=== PATIENT | female | born 1950 | race American Indian/Alaskan Native ===

== ENCOUNTER 2020-05-11 19:56 | Inpatient (IN) | payer MEDICARE, OTHER, SELFPAY ==
[2020-05-11] VITALS (17 sets, daily range): BP systolic 149–167; BP diastolic 72–92; PULSE 84–97; RESP 16–48; O2SAT 92–98
--- NOTE | 2020-05-11 20:04 | DI.RAD.S_ITS ---
PROCEDURE: XR CHEST 1V INDICATIONS: flu-like symptoms TECHNIQUE: One view of the chest was acquired. COMPARISON: None. FINDINGS: Surgical changes and devices: None. Lungs and pleura: Extensive patchy airspace opacities bilaterally No pleural effusions or pneumothorax. Mediastinum: Mediastinal contours appear normal. Heart size is normal. Bones and chest wall: No suspicious bony lesions. Overlying soft tissues appear unremarkable. IMPRESSION: Extensive bilateral patchy airspace opacities would be consistent with multifocal pneumonia, either bacterial or viral. Dictated by: Cory Avalos M.D. on 05/11/2020 at 20:45 Approved by: Cory Avalos M.D. on 05/11/2020 at 20:46
--- NOTE | 2020-05-11 20:14 | ED.SOB ---
HPI - SOB/Dyspnea General Chief Complaint: Shortness of Breath/Dyspnea Stated Complaint: COVID +, SOB Time Seen by Provider: 05/11/20 19:58 Source: patient and EMS Mode of arrival: EMS Limitations: no limitations History of Present Illness HPI Narrative: 69-year-old female nonsmoker with known positive COVID swabbed presents with a chief complaint of increased difficulty breathing over the past few days. She has had a low-grade fever of just over 100. She has had a dry hacking cough. She denies any nausea, vomiting or diarrhea. She was tested about 1 week ago found to be positive for COVID-19. On arrival medics found her with significantly increased work of breathing and initial pulse ox in the low 60s. For transport she was placed on a non-rebreather at 15 L and is much more comfortable with a pulse ox in the mid 90s. MD Complaint: shortness of breath and cough Related Data Home Medications Medication Instructions Recorded Confirmed aspirin 81 mg PO DAILY 05/11/20 05/11/20 cholecalciferol (vitamin D3) 1,000 unit PO DAILY 05/11/20 05/11/20 hydrochlorothiazide 25 mg PO DAILY 05/11/20 05/11/20 lisinopril 40 mg PO DAILY 05/11/20 05/11/20 metformin 1,000 mg PO QAM 05/11/20 05/11/20 rosuvastatin 5 mg PO DAILY 05/11/20 05/11/20 Allergies Allergy/AdvReac Type Severity Reaction Status Date / Time No Known Drug Allergies Allergy Verified 05/11/20 20:34 Review of Systems Constitutional Constitutional: Reports chills, Denies fatigue, Reports fever(s), Denies frequent falls, Denies lethargy and Denies weakness Eyes Eyes: Denies change in vision, Denies eye discharge, Denies irritation and Denies loss of vision ENT Ears, Nose, Mouth, and Throat: Denies change in voice, Denies dizziness, Denies neck pain, Denies sore throat and Denies throat swelling Cardiovascular Cardiovascular: Denies chest pain, Denies irregular heart rhythm, Denies lightheadedness, Denies palpitations, Reports dyspnea, Reports dyspnea on exertion and Denies orthopnea Respiratory Respiratory: Reports cough, Reports dyspnea, Reports dyspnea on exertion and Denies wheezing Gastrointestinal Gastrointestinal: Denies abdominal pain, Denies change in bowel habits, Denies diarrhea, Denies nausea and Denies vomiting Musculoskeletal Musculoskeletal: Denies neck pain and Denies numbness Integumentary/Breasts Skin/Breast: Denies pruritus, Denies erythema, Denies rash and Denies wounds Neurologic Neurologic: Denies behavioral changes, Denies confusion, Denies dizziness, Denies frequent falls, Denies loss of vision, Denies numbness and Denies weakness Psychiatric Psychiatric: Denies anxiety, Denies behavioral changes, Denies confusion, Denies depression, Denies homicidal ideation and Denies suicidal ideation Endocrine Endocrine: Denies fatigue, Denies flushing and Denies palpitations Hematologic/Lymphatic Hematologic/Lymphatic: Denies easy bruising Allergic/Immunologic Allergic/Immunologic: Denies urticaria, Denies throat swelling and Denies wheezing Patient History Medical History Diabetes type 2, controlled (Acute) High cholesterol (Acute) Hypertension (Acute) Social History household members: family Smoking Status: Former smoker alcohol intake: never Exam Narrative Exam Narrative: GENERAL: [69] year old patient appears stated age. Well-nourished, well-developed patient, in obvious significant respiratory distress HEAD: Atraumatic. Normocephalic. EYES: Pupils equal round and reactive. Extraocular motions intact. No scleral icterus. No injection or drainage. ENT: Nose without bleeding, purulent drainage. Throat without erythema, tonsillar hypertrophy or exudate. Airway patent. NECK: Trachea midline. Non tender CARDIOVASCULAR: Regular rate and rhythm without murmurs, gallops, or rubs. RESPIRATORY: Tachypneic with faint crackles in bilateral bases GASTROINTESTINAL: Abdomen soft, non-tender, nondistended. EXTREMITIES: No edema or joint tenderness. BACK: Nontender without deformity or crepitance. No flank tenderness. NEURO: AOx3. SKIN: No rash or erythema of visible areas Initial Vital Signs Initial Vital Signs: Vital Signs Pulse Rate 97 H 05/11/20 20:11 Respiratory Rate 42 H 05/11/20 20:11 Pulse Oximetry 95 05/11/20 20:11 Course Orders Ordered: Acetaminophen (Tylenol) 650 mg PO Q6HR PRN PRN Reason: Fever/Mild Pain (1-3) Aspirin (Aspirin Chew) 81 mg PO DAILY [facility] Dexamethasone (Decadron) 6 mg PO DAILY [facility] Dextrose (D50w) 25 gm IV PRN PRN PRN Reason: Hypoglycemia Dextrose (D50w) 25 gm IV PRN PRN PRN Reason: Hypoglycemia Dextrose (D50w) 25 gm IV PRN PRN PRN Reason: Hypoglycemia Enoxaparin Sodium (Lovenox) 40 mg SUBCUT DAILY [facility] Sodium Chloride (Normal Saline 0.9%) 1,000 mls @ 100 mls/hr IV CONT [facility] Last Admin: 05/12/20 02:55 Dose: 100 mls/hr Documented by: THERON Insulin Aspart (Novolog Flexpen) 0 unit SUBCUT ACHS [facility]; Protocol Insulin Aspart (Novolog Flexpen) 0 unit SUBCUT ACHS [facility]; Protocol Insulin Glargine (Lantus Solostar (Pen)) 10 unit SUBCUT 0800 [facility] Ipratropium [place] (Atrovent Hfa) 2 puff INH RTQ6HR [facility] Levalbuterol HCl (Xopenex Hfa) 2 puff INH RTQ4HR PRN PRN Reason: Dyspnea Lisinopril (Zestril) 40 mg PO DAILY [facility] Ondansetron HCl (Zofran) 4 mg IV Q6HR PRN PRN Reason: Nausea And Vomiting Rosuvastatin Calcium (Crestor) 5 mg PO DAILY [facility] Discontinued Medications Dexamethasone (Decadron) 10 mg IV NOW ONE Stop: 05/11/20 20:04 Last Admin: 05/11/20 20:52 Dose: 10 mg Documented by: SHARMILA Sodium Chloride (Normal Saline 0.45%) 1,000 mls @ 100 mls/hr IV CONT [facility] Last Admin: 05/12/20 01:56 Dose: Not Given Documented by: THERON Insulin Aspart (Novolog Flexpen) 0 unit SUBCUT ACHS [facility]; Protocol Naloxone HCl (Narcan) 0.2 mg IV Q2MIN PRN PRN Reason: Opiate Reversal Ondansetron HCl (Zofran) 4 mg IV Q6HR [facility] Last Admin: 05/12/20 01:57 Dose: Not Given Documented by: THERON MDM - SOB/Dyspnea Lab Data Result diagrams: 05/12/20 04:44 05/12/20 04:44 Labs: Lab Results 05/11/20 05/11/20 05/11/20 Range/Units 03:49 20:00 20:10 WBC (4.5-11.0) X10^3/uL RBC (4.0-5.2) X10^6/uL Hgb (12.0-16.0) g/dL Hct (36-46) % MCV (80-100) fL MCH (26-34) PG MCHC (30-36) % RDW (11.6-14.8) % Plt Count (150-400) X10^3/uL Neut % (Auto) (50-75) % Lymph % (Auto) (25-40) % Summit % (Auto) (3-14) % Eos % (Auto) (2-4) % Baso % (Auto) (0-2) % Neut # (Auto) (5679-2078) /uL Lymph # (Auto) (0333-3532) /uL Summit # (Auto) (0-900) /uL Eos # (Auto) (0-450) /uL Baso # (Auto) (0-100) /uL D-Dimer 553 H (<230) ng/mL ABG pH 7.47 H (7.35-7.45) ABG pCO2 33.4 L (35-45) mmHg ABG pO2 80 (80-100) mmHg ABG HCO3 25 (22-26) mmol/L ABG Total CO2 26 (21-31) mmol/L ABG O2 Saturation 97 (95-100) % ABG Base Excess 1.0 (-2-2) mmol/L FiO2 100 Sodium (137-145) mmol/L Potassium (3.4-5.1) mmol/L Chloride (98-107) mmol/L Carbon Dioxide (22-32) mmol/L BUN (7-17) mg/dL Creatinine (0.52-1.04) mg/dL Estimated GFR (>60) mL/min BUN/Creatinine Ratio (6-22) Glucose (80-110) mg/dL Hemoglobin A1c 11.0 H (4.0-6.0) % Lactate (0.7-2.1) mmol/L Calcium (8.4-10.2) mg/dL Ferritin (11-264) ng/mL Total Bilirubin (0.2-1.3) mg/dL AST (14-36) IU/L ALT (<35) IU/L Alkaline Phosphatase (38-126) U/L Lactate Dehydrogenase (313-618) U/L Total Creatine Kinase (30-135) U/L CK-MB (CK-2) CK-MB (CK-2) Rel Index Troponin I (0.01-0.034) ng/mL C-Reactive Protein (<1.0) mg/dL NT-Pro-B Natriuret Pep (<125) pg/mL Total Protein (6.3-8.2) g/dL Albumin (3.5-5.0) g/dL Globulin (1.7-4.1) g/dL Albumin/Globulin Ratio (1.0-2.8) Procalcitonin (<0.5) ng/mL Chlamy pneumoniae PCR (Not Detect) Adenovirus (PCR) (Not Detect) B.parapertussis DNA PCR (Not Detect) Coronavirus OC43 (PCR) (Not Detect) Coronavirus HKU1 (PCR) (Not Detect) Coronavirus 229E (PCR) (Not Detect) COVID-19 PCR (Negative) Coronavirus NL63 (PCR) (Not Detect) Human Metapneumovir PCR (Not Detect) Influenza Type A (PCR) (Not Detect) Influenza Type B (PCR) (Not Detect) M. pneumoniae (PCR) (Not Detect) Parainfluenza 1 (PCR) (Not Detect) Parainfluenza 2 (PCR) (Not Detect) Parainfluenza 3 (PCR) (Not Detect) Parainfluenza 4 (PCR) (Not Detect) RSV (PCR) (Not Detect) Entero/Rhino (PCR) (Not Detect) 05/11/20 05/11/20 05/11/20 Range/Units 20:10 20:10 20:10 WBC 9.4 (4.5-11.0) X10^3/uL RBC 5.15 (4.0-5.2) X10^6/uL Hgb 14.3 (12.0-16.0) g/dL Hct 42.0 (36-46) % MCV 81.5 (80-100) fL MCH 27.7 (26-34) PG MCHC 33.9 (30-36) % RDW 14.9 H (11.6-14.8) % Plt Count 315 (150-400) X10^3/uL Neut % (Auto) 85.9 H (50-75) % Lymph % (Auto) 9.7 L (25-40) % Summit % (Auto) 3.4 (3-14) % Eos % (Auto) 0.7 L (2-4) % Baso % (Auto) 0.3 (0-2) % Neut # (Auto) 8100 H (5117-7764) /uL Lymph # (Auto) 900 L (3029-3396) /uL Summit # (Auto) 300 (0-900) /uL Eos # (Auto) 100 (0-450) /uL Baso # (Auto) 0 (0-100) /uL D-Dimer (<230) ng/mL ABG pH (7.35-7.45) ABG pCO2 (35-45) mmHg ABG pO2 (80-100) mmHg ABG HCO3 (22-26) mmol/L ABG Total CO2 (21-31) mmol/L ABG O2 Saturation (95-100) % ABG Base Excess (-2-2) mmol/L FiO2 Sodium 138 (137-145) mmol/L Potassium 3.7 (3.4-5.1) mmol/L Chloride 106 (98-107) mmol/L Carbon Dioxide 25 (22-32) mmol/L BUN 13 (7-17) mg/dL Creatinine 0.51 L (0.52-1.04) mg/dL Estimated GFR > 60.0 (>60) mL/min BUN/Creatinine Ratio 25.5 H (6-22) Glucose 150 H (80-110) mg/dL Hemoglobin A1c (4.0-6.0) % Lactate (0.7-2.1) mmol/L Calcium 8.6 (8.4-10.2) mg/dL Ferritin 184 (11-264) ng/mL Total Bilirubin 0.6 (0.2-1.3) mg/dL AST 58 H (14-36) IU/L ALT 25 (<35) IU/L Alkaline Phosphatase 214 H (38-126) U/L Lactate Dehydrogenase 1036 H (313-618) U/L Total Creatine Kinase 22 L (30-135) U/L CK-MB (CK-2) TNP CK-MB (CK-2) Rel Index TNP Troponin I < 0.012 (0.01-0.034) ng/mL C-Reactive Protein > 9.0 H (<1.0) mg/dL NT-Pro-B Natriuret Pep 120 (<125) pg/mL Total Protein 7.3 (6.3-8.2) g/dL Albumin 3.2 L (3.5-5.0) g/dL Globulin 4.1 (1.7-4.1) g/dL Albumin/Globulin Ratio 0.8 L (1.0-2.8) Procalcitonin 0.06 (<0.5) ng/mL Chlamy pneumoniae PCR (Not Detect) Adenovirus (PCR) (Not Detect) B.parapertussis DNA PCR (Not Detect) Coronavirus OC43 (PCR) (Not Detect) Coronavirus HKU1 (PCR) (Not Detect) Coronavirus 229E (PCR) (Not Detect) COVID-19 PCR (Negative) Coronavirus NL63 (PCR) (Not Detect) Human Metapneumovir PCR (Not Detect) Influenza Type A (PCR) (Not Detect) Influenza Type B (PCR) (Not Detect) M. pneumoniae (PCR) (Not Detect) Parainfluenza 1 (PCR) (Not Detect) Parainfluenza 2 (PCR) (Not Detect) Parainfluenza 3 (PCR) (Not Detect) Parainfluenza 4 (PCR) (Not Detect) RSV (PCR) (Not Detect) Entero/Rhino (PCR) (Not Detect) 05/11/20 05/11/20 05/11/20 Range/Units 20:10 21:35 21:35 WBC (4.5-11.0) X10^3/uL RBC (4.0-5.2) X10^6/uL Hgb (12.0-16.0) g/dL Hct (36-46) % MCV (80-100) fL MCH (26-34) PG MCHC (30-36) % RDW (11.6-14.8) % Plt Count (150-400) X10^3/uL Neut % (Auto) (50-75) % Lymph % (Auto) (25-40) % Summit % (Auto) (3-14) % Eos % (Auto) (2-4) % Baso % (Auto) (0-2) % Neut # (Auto) (0301-6397) /uL Lymph # (Auto) (1607-1414) /uL Summit # (Auto) (0-900) /uL Eos # (Auto) (0-450) /uL Baso # (Auto) (0-100) /uL D-Dimer (<230) ng/mL ABG pH (7.35-7.45) ABG pCO2 (35-45) mmHg ABG pO2 (80-100) mmHg ABG HCO3 (22-26) mmol/L ABG Total CO2 (21-31) mmol/L ABG O2 Saturation (95-100) % ABG Base Excess (-2-2) mmol/L FiO2 Sodium (137-145) mmol/L Potassium (3.4-5.1) mmol/L Chloride (98-107) mmol/L Carbon Dioxide (22-32) mmol/L BUN (7-17) mg/dL Creatinine (0.52-1.04) mg/dL Estimated GFR (>60) mL/min BUN/Creatinine Ratio (6-22) Glucose (80-110) mg/dL Hemoglobin A1c (4.0-6.0) % Lactate 1.9 (0.7-2.1) mmol/L Calcium (8.4-10.2) mg/dL Ferritin (11-264) ng/mL Total Bilirubin (0.2-1.3) mg/dL AST (14-36) IU/L ALT (<35) IU/L Alkaline Phosphatase (38-126) U/L Lactate Dehydrogenase (313-618) U/L Total Creatine Kinase (30-135) U/L CK-MB (CK-2) CK-MB (CK-2) Rel Index Troponin I (0.01-0.034) ng/mL C-Reactive Protein (<1.0) mg/dL NT-Pro-B Natriuret Pep (<125) pg/mL Total Protein (6.3-8.2) g/dL Albumin (3.5-5.0) g/dL Globulin (1.7-4.1) g/dL Albumin/Globulin Ratio (1.0-2.8) Procalcitonin (<0.5) ng/mL Chlamy pneumoniae PCR Not detected (Not Detect) Adenovirus (PCR) Not detected (Not Detect) B.parapertussis DNA PCR Not detected (Not Detect) Coronavirus OC43 (PCR) Not detected (Not Detect) Coronavirus HKU1 (PCR) Not detected (Not Detect) Coronavirus 229E (PCR) Not detected (Not Detect) COVID-19 PCR Positive H (Negative) Coronavirus NL63 (PCR) Not detected (Not Detect) Human Metapneumovir PCR Not detected (Not Detect) Influenza Type A (PCR) Not detected (Not Detect) Influenza Type B (PCR) Not detected (Not Detect) M. pneumoniae (PCR) Not detected (Not Detect) Parainfluenza 1 (PCR) Not detected (Not Detect) Parainfluenza 2 (PCR) Not detected (Not Detect) Parainfluenza 3 (PCR) Not detected (Not Detect) Parainfluenza 4 (PCR) Not detected (Not Detect) RSV (PCR) Not detected (Not Detect) Entero/Rhino (PCR) Not detected (Not Detect) Imaging Data Chest x-ray: Radiologist's Impression: Carmina Ewing 69 [address] [place] [address] XRay Report Signed Patient: Carmina Ewing EMR#: [id number] : 9Acct:[id number] Age/Sex: 69 / FDate of Service: 05/11/20 Loc: ED Accession Number: [id number] Procedure: XR chest 1V Ordering Provider: Sameer Goins D.O. PROCEDURE: XR CHEST 1V INDICATIONS: flu-like symptoms TECHNIQUE: One view of the chest was acquired. COMPARISON: None. FINDINGS: Surgical changes and devices: None. Lungs and pleura: Extensive patchy airspace opacities bilaterally No pleural effusions or pneumothorax. Mediastinum: Mediastinal contours appear normal. Heart size is normal. Bones and chest wall: No suspicious bony lesions. Overlying soft tissues appear unremarkable. IMPRESSION: Extensive bilateral patchy airspace opacities would be consistent with multifocal pneumonia, either bacterial or viral. Dictated by: Cory Avalos M.D. on 05/11/2020 at 20:45 Approved by: Cory Avalos M.D. on 05/11/2020 at 20:46 Discharge Plan Departure Patient Disposition: Admitted As Inpatient Clinical Impression: Acute respiratory failure with hypoxia, COVID-19 Discharge Date/Time: 05/12/20 00:36 Admit Date/Time: 05/11/20 22:21 Admit Provider: Jasmin Boyce
[2020-05-11 20:25] LABS: Add Manual Diff / Slide Review NO; Basophils Absolute Auto 0 /uL (0-100); Basophils Percent Auto 0.3 % (0-2); Eosinophils Absolute Auto 100 /uL (0-450); Eosinophils Percent Auto 0.7 % (2-4); Hemoglobin 14.3 g/dL (12.0-16.0); Lymphocytes Absolute Auto 900 /uL (1100-4500); Lymphocytes Percent Auto 9.7 % (25-40); Mean Corpuscular HGB Conc 33.9 % (30-36); Mean Corpuscular Hemoglobin 27.7 PG (26-34); Mean Corpuscular Volume 81.5 fL (80-100); Monocytes Absolute Auto 300 /uL (0-900); Monocytes Percent Auto 3.4 % (3-14); Neutrophils Absolute Auto 8100 /uL (1500-7000); Neutrophils Percent Auto 85.9 % (50-75); Platelet Count 315 X10^3/uL (150-400); Red Blood Cell Count 5.15 X10^6/uL (4.0-5.2); Red Cell Distribution Width 14.9 % (11.6-14.8); White Blood Cell Count 9.4 X10^3/uL (4.5-11.0)
[2020-05-11 20:34] LABS: D Dimer 553 ng/mL (<230)
[2020-05-11 20:36] LABS: Lactate (Lactic Acid) 1.9 mmol/L (0.7-2.1)
[2020-05-11 20:38] LABS: Alanine Aminotransferase 25 IU/L (<35); Albumin 3.2 g/dL (3.5-5.0); Albumin Globulin Ratio 0.8 (1.0-2.8); Alkaline Phosphatase 214 U/L (38-126); Aspartate Aminotransferase 58 IU/L (14-36); BUN Creatinine Ratio 25.5 (6-22); Bilirubin Total 0.6 mg/dL (0.2-1.3); Blood Urea Nitrogen 13 mg/dL (7-17); Calcium 8.6 mg/dL (8.4-10.2); Carbon Dioxide 25 mmol/L (22-32); Chloride 106 mmol/L (98-107); Creatine Kinase 22 U/L (30-135); Estimated Glomerular Filt Rate > 60.0 mL/min (>60); Globulin 4.1 g/dL (1.7-4.1); Glucose 150 mg/dL (80-110); HEMOLYSIS < 15 (0-50); Lactate Dehydrogenase 1036 U/L (313-618); Potassium 3.7 mmol/L (3.4-5.1); Sodium 138 mmol/L (137-145); Total Protein 7.3 g/dL (6.3-8.2)
[2020-05-11 20:40] LABS: C-Reactive Protein Quant > 9.0 mg/dL (<1.0)
[2020-05-11 20:47] LABS: NT-proBNP (BNP-Adult 18+) 120 pg/mL (<125); Troponin I < 0.012 ng/mL (0.01-0.034)
[2020-05-11 20:50] LABS: Procalcitonin 0.06 ng/mL (<0.5)
[2020-05-11] MEDS: DEXAMETHASONE 10 MG/ML VIAL IV (20:52)
[2020-05-11 21:10] LABS: Ferritin 184 ng/mL (11-264)
[2020-05-12] VITALS (14 sets, daily range): BP systolic 141–157; BP diastolic 65–84; PULSE 66–110; RESP 28–46; TEMP 36.4–36.5; O2SAT 84–98; BMI 30.9
[2020-05-12 00:07] LABS: COVID19 -Nasal RAPID POSITIVE (Negative)
[2020-05-12 00:36] LABS: Adenovirus Not Detected (Not Detect); Bordetella pertussis Not Detected (Not Detect); Chlamydophila pneumoniae Not Detected (Not Detect); Coronavirus 229E Not Detected (Not Detect); Coronavirus HKU1 Not Detected (Not Detect); Coronavirus NL 63 Not Detected (Not Detect); Coronavirus OC43 Not Detected (Not Detect); Human Metapneumovirus Not Detected (Not Detect); Human Rhinovirus/Enterovirus Not Detected (Not Detect); Influenza A Not Detected (Not Detect); Influenza B Not Detected (Not Detect); Mycoplasma pneumoniae Not Detected (Not Detect); Parainfluenza Virus 1 Not Detected (Not Detect); Parainfluenza Virus 2 Not Detected (Not Detect); Parainfluenza Virus 3 Not Detected (Not Detect); Parainfluenza Virus 4 Not Detected (Not Detect); Respiratory Syncytial Virus Not Detected (Not Detect)
--- NOTE | 2020-05-12 00:45 | P.HP_ITS ---
History of Present Illness History of Present Illness Date Patient Seen: 05/11/20 Time Patient Seen: 21:45 Chief complaint: COVID +, SOB Narrative: Shandra Ewing is a 69-year-old diabetic female who is a resident of the [facility] who presents today with worsening shortness of breath associated with COVID-19. She was tested bone week ago and was positive. Apparently her daughter was here and recently discharged with the same. Jovan olivo states that they have been quarantiningg for the past 5 weeks. She has had a low-grade fever of just over 100. She has had a dry non-producting hacking cough and now complains of a headache. She denies a sore throat, difficulty swallowing, nausea or vomiting, chest pain, abdominal pain, dysurea, diarrhea or constipation. Her main complaint is feeling very short of breath that is exacerbated with activity. She was on 15 liters non-rebreather mask when I saw her and she had difficulty speaking without getting short of breath. ED xray indicated Extensive bilateral patchy airspace opacities would be consistent with multifocal pneumonia, either bacterial or viral. Repeat COVID- 19 was positive. Temparature , blood pressure 146/68, heart rate 86, respiratory rate 46, oxygen saturation 93% on 15 L rebreather mask, her weight is 74.6 kg. Diabetes BC 9.4, RBC 5.15, hemoglobin 14.3, hematocrit 42, platelet count 315, decreased lymphocytes at 900, D-dimer was 553 which is normal per age adjusted, sodium 138 potassium 3.7, chloride 106, CO2 25, creatinine 0.51, BUN 13, GFR is greater than 60, glucose 150, hemoglobin A1c of 11, AST 58, ALT 25, alk-phos 214, LDH 1036, creatinine kinase 22, C-reactive protein is greater than 9.0 and procalcitonin is 0.06. Respiratory panel is negative except for COVID-19. Patient History Medical History Diabetes type 2, controlled (Acute) High cholesterol (Acute) Hypertension (Acute) Family & Social History Safety & Behavioral: Feels Safe in Current Yes Environment Been Physically Hurt or No Threatened By a Person Tobacco & Substance use: Smoking Status Former smoker alcohol intake frequency 0-2 drinks per day Substance Use Type does not use Meds Home Medications and Allergies Home Medications Medication Instructions Recorded Confirmed Type aspirin 81 mg PO DAILY 05/11/20 05/11/20 History cholecalciferol (vitamin D3) 1,000 unit PO DAILY 05/11/20 05/11/20 History hydrochlorothiazide 25 mg PO DAILY 05/11/20 05/11/20 History lisinopril 40 mg PO DAILY 05/11/20 05/11/20 History metformin 1,000 mg PO QAM 05/11/20 05/11/20 History rosuvastatin 5 mg PO DAILY 05/11/20 05/11/20 History Allergies Allergy/AdvReac Type Severity Reaction Status Date / Time No Known Drug Allergies Allergy Verified 05/11/20 20:34 Review of Systems Review of Systems ROS: Yes All systems reviewed with the patient and are negative except as otherwise documented Exam Vital Signs (past 8 hours): - 05/11/20 20:11 05/11/20 20:15 05/11/20 20:17 Pulse Rate 97 H 95 H 92 H Respiratory Rate 42 H 42 H 41 H Blood Pressure 152/88 H Pulse Oximetry 95 94 95 05/11/20 20:30 05/11/20 20:45 05/11/20 21:00 Pulse Rate 95 H 93 H 91 H Respiratory Rate 35 H 42 H 42 H Blood Pressure 156/82 H 163/80 H 158/72 H Pulse Oximetry 94 95 97 05/11/20 21:15 05/11/20 21:30 05/11/20 21:45 Pulse Rate 92 H 93 H 94 H Respiratory Rate 48 H 44 H 32 H Blood Pressure 167/81 H 167/89 H 160/81 H Pulse Oximetry 96 96 92 05/11/20 22:00 05/11/20 22:15 05/11/20 22:30 Pulse Rate 91 H 93 H 90 Respiratory Rate 41 H 37 H 20 Blood Pressure 166/83 H 162/84 H 164/92 H Pulse Oximetry 96 94 97 05/11/20 22:45 05/11/20 23:00 05/11/20 23:15 Pulse Rate 86 92 H 85 Respiratory Rate 16 22 19 Blood Pressure 156/88 H 154/85 H 164/84 H Pulse Oximetry 98 98 96 05/11/20 23:30 05/11/20 23:45 05/12/20 00:00 Pulse Rate 84 85 86 Respiratory Rate 42 H 22 46 H Blood Pressure 160/79 H 149/84 H 146/68 H Pulse Oximetry 97 97 93 Oxygen Delivery Method Non -Rebreather Oxygen Flow Rate 15 Narrative Exam Narrative: Gen: Alert, oriented, well-developed 69 y.o. female, dyspnic HEENT: normocephalic, atraumatic, conjunctiva clear, sclera non-icteric, oral mucosa pink and moist Neck: supple, full ROM, no JVD, trachea is midline Resp: Lungs CTA, non-labored breathing CV: RRR, no murmur or rubs Abd: soft, non-tender, normoactive BTs Skin: no lesions or rashes, dry and intact Neuro: Alert and oriented X 4 w/no focal deficits. Speech clear and coherent. Extremities: moves all 4 extremities, is ambulatory, negative Ladarius?s sign Psyche: normal mood and affect. Objective Labs Result Diagrams: 05/11/20 20:10 05/11/20 20:10 Labs: Laboratory Results - last 24 hr 05/11/20 05/11/20 05/11/20 20:00 20:10 20:10 WBC RBC Hgb Hct MCV MCH MCHC RDW Plt Count Neut % (Auto) Lymph % (Auto) [place] % (Auto) Eos % (Auto) Baso % (Auto) Neut # (Auto) Lymph # (Auto) [place] # (Auto) Eos # (Auto) Baso # (Auto) D-Dimer 553 H Sodium Potassium Chloride Carbon Dioxide BUN Creatinine Estimated GFR BUN/Creatinine Ratio Glucose Hemoglobin A1c 11.0 H Lactate Calcium Ferritin Total Bilirubin AST ALT Alkaline Phosphatase Lactate Dehydrogenase Total Creatine Kinase CK-MB (CK-2) CK-MB (CK-2) Rel Index Troponin I C-Reactive Protein NT-Pro-B Natriuret Pep Total Protein Albumin Globulin Albumin/Globulin Ratio Procalcitonin 0.06 Chlamy pneumoniae PCR Adenovirus (PCR) B.parapertussis DNA PCR Coronavirus OC43 (PCR) Coronavirus HKU1 (PCR) Coronavirus 229E (PCR) COVID-19 PCR Coronavirus NL63 (PCR) Human Metapneumovir PCR Influenza Type A (PCR) Influenza Type B (PCR) M. pneumoniae (PCR) Parainfluenza 1 (PCR) Parainfluenza 2 (PCR) Parainfluenza 3 (PCR) Parainfluenza 4 (PCR) RSV (PCR) Entero/Rhino (PCR) 05/11/20 05/11/20 05/11/20 20:10 20:10 20:10 WBC 9.4 RBC 5.15 Hgb 14.3 Hct 42.0 MCV 81.5 MCH 27.7 MCHC 33.9 RDW 14.9 H Plt Count 315 Neut % (Auto) 85.9 H Lymph % (Auto) 9.7 L [place] % (Auto) 3.4 Eos % (Auto) 0.7 L Baso % (Auto) 0.3 Neut # (Auto) 8100 H Lymph # (Auto) 900 L [place] # (Auto) 300 Eos # (Auto) 100 Baso # (Auto) 0 D-Dimer Sodium 138 Potassium 3.7 Chloride 106 Carbon Dioxide 25 BUN 13 Creatinine 0.51 L Estimated GFR > 60.0 BUN/Creatinine Ratio 25.5 H Glucose 150 H Hemoglobin A1c Lactate 1.9 Calcium 8.6 Ferritin 184 Total Bilirubin 0.6 AST 58 H ALT 25 Alkaline Phosphatase 214 H Lactate Dehydrogenase 1036 H Total Creatine Kinase 22 L CK-MB (CK-2) TNP CK-MB (CK-2) Rel Index TNP Troponin I < 0.012 C-Reactive Protein > 9.0 H NT-Pro-B Natriuret Pep 120 Total Protein 7.3 Albumin 3.2 L Globulin 4.1 Albumin/Globulin Ratio 0.8 L Procalcitonin Chlamy pneumoniae PCR Adenovirus (PCR) B.parapertussis DNA PCR Coronavirus OC43 (PCR) Coronavirus HKU1 (PCR) Coronavirus 229E (PCR) COVID-19 PCR Coronavirus NL63 (PCR) Human Metapneumovir PCR Influenza Type A (PCR) Influenza Type B (PCR) M. pneumoniae (PCR) Parainfluenza 1 (PCR) Parainfluenza 2 (PCR) Parainfluenza 3 (PCR) Parainfluenza 4 (PCR) RSV (PCR) Entero/Rhino (PCR) 05/11/20 05/11/20 21:35 21:35 WBC RBC Hgb Hct MCV MCH MCHC RDW Plt Count Neut % (Auto) Lymph % (Auto) [place] % (Auto) Eos % (Auto) Baso % (Auto) Neut # (Auto) Lymph # (Auto) [place] # (Auto) Eos # (Auto) Baso # (Auto) D-Dimer Sodium Potassium Chloride Carbon Dioxide BUN Creatinine Estimated GFR BUN/Creatinine Ratio Glucose Hemoglobin A1c Lactate Calcium Ferritin Total Bilirubin AST ALT Alkaline Phosphatase Lactate Dehydrogenase Total Creatine Kinase CK-MB (CK-2) CK-MB (CK-2) Rel Index Troponin I C-Reactive Protein NT-Pro-B Natriuret Pep Total Protein Albumin Globulin Albumin/Globulin Ratio Procalcitonin Chlamy pneumoniae PCR Not detected Adenovirus (PCR) Not detected B.parapertussis DNA PCR Not detected Coronavirus OC43 (PCR) Not detected Coronavirus HKU1 (PCR) Not detected Coronavirus 229E (PCR) Not detected COVID-19 PCR Positive H Coronavirus NL63 (PCR) Not detected Human Metapneumovir PCR Not detected Influenza Type A (PCR) Not detected Influenza Type B (PCR) Not detected M. pneumoniae (PCR) Not detected Parainfluenza 1 (PCR) Not detected Parainfluenza 2 (PCR) Not detected Parainfluenza 3 (PCR) Not detected Parainfluenza 4 (PCR) Not detected RSV (PCR) Not detected Entero/Rhino (PCR) Not detected Assessment & Plan Assessment & Plan narrative: Carmina Ewing will be admitted as an inpatient for further management of COVID-19 infection. Acute respiratory failure with hypoxia secondary to COVID-19, present on admission -with exertion the patient's oxygenation dropped down to the 60s -patient will be placed into a negative pressure room with isolation precautions for airborne -patient is initiated on dexamethasone 6 mg p.o. daily -D-dimer to be done daily to monitor for hypercoagulability -respiratory to set the patient up with high-flow oxygen and is recommended to prone and turn the patient. -she will receive normal saline at 100 mL/hour -daily morning ABGs -albuterol and ipratropium MDIs as needed for shortness of breath -if patient's respiratory symptoms declines to a point where she needs intubation it is probable that she will need to be transferred to a tertiary facility for advanced ICU management Diabetes type 2 poorly controlled with hemoglobin A1c of 11 -patient normally takes metformin 1000 mg p.o. in a.m. and this will be held -start glargine 10 units in the morning with medium dose correctional insulin -carb controlled diet Essential hypertension, chronic, present on admission -continue home dose of lisinopril 40 mg p.o. daily -continue home dose of aspirin 81 mg p.o. daily Hyperlipidemia, chronic, present on admission -continue home dose of rosuvastatin 5 mg p.o. daily Consults: None Patient is admitted under inpatient status with expected length of stay greater than 2 midnights due to severity of presenting symptoms, risk of adverse event, and complexity of treatment plan. FEN: NS at 100 ml/hour, Carb controlled diet, BMP and magnesium in the am. VTE prophylaxis: Bilateral SCDs, Enoxaparin 40 mg subQ daily Dispo: Unknown at this time Code Status: Patient does not know, will consider in the am, she is a full code until she indicates otherwise. COVID-19 COVID-19 status: Positive Result date/Date tested (Pos, Neg/Pending): 05/12/20 Quality VTE Deep Vein Thrombosis/Pulmonary Embolism Present on Admission: No
[2020-05-12] MEDS: SODIUM CHLORIDE 0.9% 1,000 ML 100 ML IV (02:55)
[2020-05-12 05:43] LABS: BUN Creatinine Ratio 29.1 (6-22); Blood Urea Nitrogen 16 mg/dL (7-17); Calcium 8.6 mg/dL (8.4-10.2); Carbon Dioxide 24 mmol/L (22-32); Chloride 108 mmol/L (98-107); D Dimer 678 ng/mL (<230); Estimated Glomerular Filt Rate > 60.0 mL/min (>60); Glucose 221 mg/dL (80-110); HEMOLYSIS < 15 (0-50); Magnesium 2.2 mg/dL (1.6-2.3); Potassium 4.4 mmol/L (3.4-5.1); Sodium 139 mmol/L (137-145)
[2020-05-12 05:44] LABS: Add Manual Diff / Slide Review NO; Basophils Absolute Auto 0 /uL (0-100); Basophils Percent Auto 0.1 % (0-2); Eosinophils Absolute Auto 0 /uL (0-450); Eosinophils Percent Auto 0.1 % (2-4); Hematocrit 43.1 % (36-46); Hemoglobin 13.9 g/dL (12.0-16.0); Lymphocytes Absolute Auto 400 /uL (1100-4500); Lymphocytes Percent Auto 5.2 % (25-40); Mean Corpuscular HGB Conc 32.3 % (30-36); Mean Corpuscular Hemoglobin 26.7 PG (26-34); Mean Corpuscular Volume 82.5 fL (80-100); Monocytes Absolute Auto 100 /uL (0-900); Monocytes Percent Auto 1.3 % (3-14); Neutrophils Absolute Auto 7000 /uL (1500-7000); Neutrophils Percent Auto 93.3 % (50-75); Platelet Count 323 X10^3/uL (150-400); Red Blood Cell Count 5.23 X10^6/uL (4.0-5.2); Red Cell Distribution Width 14.8 % (11.6-14.8); White Blood Cell Count 7.5 X10^3/uL (4.5-11.0)
--- NOTE | 2020-05-12 06:40 | PC.NURSE ---
NOC Note: Pt arrived at 0145, non-rebreather mask at 15L, RT declined to put pt on high flow due to improvements in comfort and resp effort. Pt up to bsc with 2PA, pt has no energy reserve and become winded with any exertion. Pt has removed mask several times and O2 dips to 80-82% on room air and takes 2-3 min to recover once mask is back on. Pt has been on her side, going from right to left, proning has been discussed and encouraged. Pt denies pain, except with she has discomfort with deep breathing. Crackle noted in all [place]. BT present and hypoacitve, Pt reports last BM was Tuesday (05/09), ABD is soft. Patient has rash across waist line/at waist band and also in the lower ABD fold. Pt reports that she feels the rash is from the increased temperatures and weather as well from sweating with a fever with her current COVID symptoms. Skin is discolored, erythemic in areas and has areas of superficial openings and rawness. Other areas of the rashed skin appears scaley.
[2020-05-12 06:43] LABS: HCO3 ABG 25 mmol/L (22-26); PCO2 ABG 33.4 mmHg (35-45); PO2 ABG 80 mmHg (80-100); pH ABG 7.47 (7.35-7.45)
[2020-05-12 06:44] LABS: Fractionated Inspired Oxygen 100; Oxygen Saturation ABG 97 % (95-100); TCO2 ABG 26 mmol/L (21-31)
[2020-05-12 06:49] LABS: Fractionated Inspired Oxygen 100; HCO3 ABG 23 mmol/L (22-26); Oxygen Saturation ABG 94 % (95-100); PCO2 ABG 30.3 mmHg (35-45); PO2 ABG 63 mmHg (80-100); TCO2 ABG 24 mmol/L (21-31); pH ABG 7.49 (7.35-7.45)
[2020-05-12] MEDS: SODIUM CHLORIDE 0.9% FLUSH 10 ML IV (08:22)
[2020-05-12] MEDS: ROSUVASTATIN 10 MG TABLET 5 MG PO (08:23)
[2020-05-12] MEDS: ACETAMINOPHEN 325 MG TABLET 650 MG PO (08:24)
[2020-05-12] MEDS: ASPIRIN 81 MG CHEW TAB PO (08:24)
[2020-05-12] MEDS: lisinopriL 20 MG TABLET 40 MG PO (08:24)
[2020-05-12] MEDS: ENOXAPARIN 40 MG/0.4 ML SYRINGE SUBCUT (08:25)
[2020-05-12] MEDS: INSULIN ASPART 100 UNIT/ML INSULN PEN SUBCUT ×2 (08:38→11:55)
[2020-05-12] MEDS: dexAMETHasone 1 MG TABLET 6 MG PO (08:38)
[2020-05-12] MEDS: INSULIN GLARGINE 100 UNIT/ML 3ML PEN 10 UNIT SUBCUT (08:39)
[2020-05-12] MEDS: LEVALBUTEROL HFA 200 PUFF INH INH ×2 (08:48→13:22)
[2020-05-12] MEDS: IPRATROPIUM HFA 2 PUFF INH ×2 (08:48→13:22)
--- NOTE | 2020-05-12 09:39 | CM.DANOTE ---
Patient is a 69 year old female who was admitted on 05/11/20 for COVID positive and SOB. Pt has [facility] for insurance and her PCP is at the [facility]. EMR was reviewed. Per MD, pt tested positive for COVID 19 previously over a week ago and has continued to decline in health with SOB and admitted for Acute respiratory failure hypoxia secondary to COVID 19 positive with hx of diabetes. Per RN, pt feeling better on oxygen and better than yesterday but still quite weak and labored breathing. Not yet appropriate for PT/OT eval due to oxygen needs/aerosolizing. Possible need for heated high flow Oxygen and MD discussing with [facility] the possible need for hospital transfer for higher level of care. SW called pt's primary contact, her sister Deanna [phone], due to pt's contact precautions for COVID and sister confirmed that pt lives in [facility] on the [facility] and her PCP is at the [facility]. Pt has her son Del living with her who is available for assist at d/c and currently their other sister is staying there as well for support since a few members of the family tested positive for COVID 19 and pt has been quite sick for almost 2 weeks and refused to come to the hospital until yesterday. Sister states pt is independent with ADL's at baseline and there are multiple local family members who can assist at d/c. Denies any hx of HH or SNF and pt has been quite healthy and active at baseline besides managing her diabetes and preference is home when stable pending pt's progress and needs at d/c. Plan: SW to follow closely to determine if pt needs hospital transfer for higher level of care vs remaining here and eventual PT eval to determine d/c planning needs. FANY Howell Discharge Planning/Care Management CM Discharge Assessment Start: 05/12/20 09:29 Freq: Status: Active Protocol: Document 05/12/20 09:32 BF (Rec: 05/12/20 09:38 BF [id number]) Discharge Planning Assessment Assigned International Account Executive FANY Ayers DPOA/Assigned Designee Name none Advance Directives? No Advance Directives on File No History Provided By Patient,Family Member,Medical Record Has Patient been admitted in last 30 No days? Prior Living Arrangements House Household Members family Type of transporation used prior to Relies on Others admit Independent with ADL's Yes Is patient alert and oriented? Yes Needs Assistance With Home Chores / Shopping Caregiver for Another No Patient/Family Preference Home with Home Health Comment Pending eventual PT eval when more medically appropriate to determine d/c needs. Barriers to Discharge No Discharge Plan Home Community Services Physical Therapy Transportation Arrangement Pt has local supportive family who can provide transport at d/c. Additional Comment Waiting to determine pt progress. Review Status In Process Please Provide Date Initial DC 05/12/20 Assessment Was Performed Next Review Type Continued Stay Review
[2020-05-12] MEDS: REMDESIVIR 200 MG in SODIUM CHLORIDE 0.9% 210 ML 250 ML IV (10:20)
[2020-05-12] MEDS: NYSTATIN POWDER 15GM 1 APPLIC TOP (11:56)
--- NOTE | 2020-05-12 12:14 | P.DS_ITS ---
History of Present Illness History of Present Illness Date Patient Seen: 05/12/20 Chief complaint: COVID +, SOB Narrative: Written by Jasmin RAMSEY: Fiona Ewing is a 69-year-old diabetic female who is a resident of the [facility] who presents today with worsening shortness of breath associated with COVID-19. She was tested bone week ago and was positive. Apparently her daughter was here and recently discharged with the same. Patient states that they have been quarantiningg for the past 5 weeks. She has had a low-grade fever of just over 100. She has had a dry non-producting hacking cough and now complains of a headache. She denies a sore throat, difficulty swallowing, nausea or vomiting, chest pain, abdominal pain, dysurea, diarrhea or constipation. Her main complaint is feeling very short of breath that is exacerbated with activity. She was on 15 liters non-rebreather mask when I saw her and she had difficulty speaking without getting short of breath. ED xray indicated Extensive bilateral patchy airspace opacities would be consistent with multifocal pneumonia, either bacterial or viral. Repeat COVID- 19 was positive. Temparature , blood pressure 146/68, heart rate 86, respiratory rate 46, oxygen saturation 93% on 15 L rebreather mask, her weight is 74.6 kg. Diabetes BC 9.4, RBC 5.15, hemoglobin 14.3, hematocrit 42, platelet count 315, decreased lymphocytes at 900, D-dimer was 553 which is normal per age adjusted, sodium 138 potassium 3.7, chloride 106, CO2 25, creatinine 0.51, BUN 13, GFR is greater than 60, glucose 150, hemoglobin A1c of 11, AST 58, ALT 25, alk-phos 214, LDH 1036, creatinine kinase 22, C-reactive protein is greater than 9.0 and procalcitonin is 0.06. Respiratory panel is negative except for COVID-19. Discharge Providers Provider Date of admission: 05/11/20 22:21 Discharge Date: 05/12/20 Discharge provider: Danielle Pearce DO Summary Hospital Course Discharge Diagnosis: 1. Acute hypoxemic respiratory failure, secondary to COVID-19 viral pneumonia, present on admission. Active. 2. Acute COVID-19 viral pneumonia, present on admission. Active. 3. Diabetes mellitus type 2, non-insulin using, chronic and uncontrolled, present on admission. Stable. 4. Hypertension, chronic, present on admission. Stable. 5. Hyperlipidemia, chronic, present on admission Hospital Course: Carmina Ewing is a 69-year-old female with a past medical history significant for hypertension, hyperlipidemia, uncontrolled diabetes mellitus ty pe 2, insulin using, who presented to the ED with progressive worsening shortness of breath and acute hypoxemic respiratory failure due to COVID-19 viral pneumonia. Will be admitted as an inpatient for further management of COVID-19 infection. 1. Acute hypoxemic respiratory failure, secondary to COVID-19 viral pneumonia, present on admission. Active. -Patient was found to have oxygen saturations in the 60s on room air per EMS. -ABG demonstrated respiratory alkalosis with pH 7.49, pCO2 30, PO2 63, HC03 23 with oxygen saturation 94% on FiO2 1.0. -Continued respiratory therapy evaluation and treatment. Patient was on 15 L non-rebreather with oxygen saturations in the high 80s to low 90s with continued tachypnea and respiratory rate in the high 20s to low 40s overnight. Placed patient on 11 L high-flow with oxygen saturations high 80s to mid 90s at rest and with activity dropped to high 70s with 20-30 minutes to recover. Continue albuterol and ipratropium MDIs as needed for shortness of breath 2. Acute COVID-19 viral pneumonia, present on admission. Active. -Patient presented with severe shortness of breath and dyspnea on exertion with hypoxemia and oxygen saturations in the 60s on room air. She is very high risk for decompensation with ethnicity of , obesity, age, and uncontrolled diabetes mellitus type 2. -Chest x-ray demonstrated extensive bilateral patchy airspace opacities would be consistent with multifocal pneumonia, either bacterial or viral. -COVID-19 positive. -LDH 1036 and CRP > 9.0. -Continued reversed flow isolation and droplet precautions. -Continued supportive care with acetaminophen for headache and fever and antiemetics with Zofran. She received IV fluids with normal saline at 100 mL/hr which were discontinued. -Per CDC guidelines placed patient on Remdesivir which she received 200 mg IV x 1 and then would receive 100 mg IV daily for 4 additional days thereafter and dexamethsone 6 mg daily. -Discussed case with banking paralegal, Dr. Lake at [facility] who agreed that with continual decompensation in the little time she has been admitted to this hospital and likelihood of becoming dependent upon high-flow and inability to transfer on high-flow and then need for intubation to transfer the patient should be transferred now while still able to maintain oxygen saturations on a non-rebreather. The patient also should be proned as much as tolerated with prone beds available at [facility]. Patient was transferred to [facility] for higher level of care. 3. Diabetes mellitus type 2, insulin using, chronic and uncontrolled, present on admission. Stable. -Hemoglobin A1c 11.0% indicative of poor glycemic control.. -Held metformin. Received Lantus 10 units daily. Prior to discharge confirmed medication reconciliation in which the patient takes Tresiba 75 units daily and should be continued. -Continued ACHS blood glucose checks and medium dose correctional scale insulin. -Continued heart healthy/carbohydrate consistent diet. 4. Hypertension, chronic, present on admission. Stable. -Continued home lisinopril 40 mg daily. 5. Hyperlipidemia, chronic, present on admission -Continued home aspirin 81 mg daily and rosuvastatin 5 mg daily. Exam Vital Signs (past 8 hours): - 05/12/20 04:22 05/12/20 04:51 05/12/20 04:53 Temperature Pulse Rate 81 69 Respiratory Rate 38 H 42 H Blood Pressure 151/74 H Pulse Oximetry 96 84 L 93 05/12/20 08:24 05/12/20 08:29 05/12/20 08:50 Temperature 97.5 F L Pulse Rate 89 66 Respiratory Rate 29 H 28 H Blood Pressure 155/74 H 155/74 H Pulse Oximetry 93 92 05/12/20 12:03 Temperature 97.6 F Pulse Rate 110 H Respiratory Rate 28 H Blood Pressure 142/74 H Pulse Oximetry 88 L Fraction of Inspired Oxygen 100 SaO2/FiO2 Ratio 96 Oxygen Delivery Method High Flow Nasal Cannula Oxygen Flow Rate 12 Narrative Exam Narrative: General: Elderly female sitting in bed and in no acute distress, well-developed, well-nourished, appropriately interactive. HEENT: Normocephalic, atraumatic. External ears without defect. Pupils equal, round, and reactive to light. Anicteric sclerae, moist conjunctivae, and no lid lag. Oropharynx free of erythema and cobble stoning with moist mucosa. Neck: Supple with full range of motion. No lymphadenopathy or thyromegaly. Cardiovascular: Regular rhythm, mild tachycardia, without murmurs, rubs, or gallops appreciated. Pulmonary: Diminished throughout but clear to auscultation bilaterally with occasional fine crackles. No wheezes or rhonchi. Abdomen: Soft, obese, bowel sounds present, nontender, nondistended. No hep atosplenomegaly or masses appreciated. Extremities: No clubbing, cyanosis, or edema. Skin: Normal temperature, turgor, and texture; no rash, ulcers, or subcutaneous nodules appreciated. Neurological: Cranial nerves grossly intact. Psychiatric: Normal mood and affect. Alert and oriented to person, place, and time. Objective Labs Result Diagrams: 05/12/20 04:44 05/12/20 04:44 Labs: Laboratory Results - last 24 hr 05/11/20 05/11/20 05/11/20 03:49 20:00 20:10 WBC RBC Hgb Hct MCV MCH MCHC RDW Plt Count Neut % (Auto) Lymph % (Auto) Traverse % (Auto) Eos % (Auto) Baso % (Auto) Neut # (Auto) Lymph # (Auto) Traverse # (Auto) Eos # (Auto) Baso # (Auto) D-Dimer 553 H ABG pH 7.47 H ABG pCO2 33.4 L ABG pO2 80 ABG HCO3 25 ABG Total CO2 26 ABG O2 Saturation 97 ABG Base Excess 1.0 FiO2 100 Sodium Potassium Chloride Carbon Dioxide BUN Creatinine Estimated GFR BUN/Creatinine Ratio Glucose Hemoglobin A1c 11.0 H Lactate Calcium Magnesium Ferritin Total Bilirubin AST ALT Alkaline Phosphatase Lactate Dehydrogenase Total Creatine Kinase CK-MB (CK-2) CK-MB (CK-2) Rel Index Troponin I C-Reactive Protein NT-Pro-B Natriuret Pep Total Protein Albumin Globulin Albumin/Globulin Ratio Procalcitonin Nasal Screen MRSA (PCR) Chlamy pneumoniae PCR Adenovirus (PCR) B.parapertussis DNA PCR Coronavirus OC43 (PCR) Coronavirus HKU1 (PCR) Coronavirus 229E (PCR) COVID-19 PCR Coronavirus NL63 (PCR) Human Metapneumovir PCR Influenza Type A (PCR) Influenza Type B (PCR) M. pneumoniae (PCR) Parainfluenza 1 (PCR) Parainfluenza 2 (PCR) Parainfluenza 3 (PCR) Parainfluenza 4 (PCR) RSV (PCR) Entero/Rhino (PCR) 05/11/20 05/11/20 05/11/20 20:10 20:10 20:10 WBC 9.4 RBC 5.15 Hgb 14.3 Hct 42.0 MCV 81.5 MCH 27.7 MCHC 33.9 RDW 14.9 H Plt Count 315 Neut % (Auto) 85.9 H Lymph % (Auto) 9.7 L Traverse % (Auto) 3.4 Eos % (Auto) 0.7 L Baso % (Auto) 0.3 Neut # (Auto) 8100 H Lymph # (Auto) 900 L Traverse # (Auto) 300 Eos # (Auto) 100 Baso # (Auto) 0 D-Dimer ABG pH ABG pCO2 ABG pO2 ABG HCO3 ABG Total CO2 ABG O2 Saturation ABG Base Excess FiO2 Sodium 138 Potassium 3.7 Chloride 106 Carbon Dioxide 25 BUN 13 Creatinine 0.51 L Estimated GFR > 60.0 BUN/Creatinine Ratio 25.5 H Glucose 150 H Hemoglobin A1c Lactate Calcium 8.6 Magnesium Ferritin 184 Total Bilirubin 0.6 AST 58 H ALT 25 Alkaline Phosphatase 214 H Lactate Dehydrogenase 1036 H Total Creatine Kinase 22 L CK-MB (CK-2) TNP CK-MB (CK-2) Rel Index TNP Troponin I < 0.012 C-Reactive Protein > 9.0 H NT-Pro-B Natriuret Pep 120 Total Protein 7.3 Albumin 3.2 L Globulin 4.1 Albumin/Globulin Ratio 0.8 L Procalcitonin 0.06 Nasal Screen MRSA (PCR) Chlamy pneumoniae PCR Adenovirus (PCR) B.parapertussis DNA PCR Coronavirus OC43 (PCR) Coronavirus HKU1 (PCR) Coronavirus 229E (PCR) COVID-19 PCR Coronavirus NL63 (PCR) Human Metapneumovir PCR Influenza Type A (PCR) Influenza Type B (PCR) M. pneumoniae (PCR) Parainfluenza 1 (PCR) Parainfluenza 2 (PCR) Parainfluenza 3 (PCR) Parainfluenza 4 (PCR) RSV (PCR) Entero/Rhino (PCR) 05/11/20 05/11/20 05/11/20 20:10 20:37 21:35 WBC RBC Hgb Hct MCV MCH MCHC RDW Plt Count Neut % (Auto) Lymph % (Auto) Traverse % (Auto) Eos % (Auto) Baso % (Auto) Neut # (Auto) Lymph # (Auto) Traverse # (Auto) Eos # (Auto) Baso # (Auto) D-Dimer ABG pH 7.49 H ABG pCO2 30.3 L ABG pO2 63 L ABG HCO3 23 ABG Total CO2 24 ABG O2 Saturation 94 L ABG Base Excess 0.0 FiO2 100 Sodium Potassium Chloride Carbon Dioxide BUN Creatinine Estimated GFR BUN/Creatinine Ratio Glucose Hemoglobin A1c Lactate 1.9 Calcium Magnesium Ferritin Total Bilirubin AST ALT Alkaline Phosphatase Lactate Dehydrogenase Total Creatine Kinase CK-MB (CK-2) CK-MB (CK-2) Rel Index Troponin I C-Reactive Protein NT-Pro-B Natriuret Pep Total Protein Albumin Globulin Albumin/Globulin Ratio Procalcitonin Nasal Screen MRSA (PCR) Chlamy pneumoniae PCR Adenovirus (PCR) B.parapertussis DNA PCR Coronavirus OC43 (PCR) Coronavirus HKU1 (PCR) Coronavirus 229E (PCR) COVID-19 PCR Positive H Coronavirus NL63 (PCR) Human Metapneumovir PCR Influenza Type A (PCR) Influenza Type B (PCR) M. pneumoniae (PCR) Parainfluenza 1 (PCR) Parainfluenza 2 (PCR) Parainfluenza 3 (PCR) Parainfluenza 4 (PCR) RSV (PCR) Entero/Rhino (PCR) 05/11/20 05/12/20 05/12/20 21:35 03:42 04:44 WBC 7.5 RBC 5.23 H Hgb 13.9 Hct 43.1 MCV 82.5 MCH 26.7 MCHC 32.3 RDW 14.8 Plt Count 323 Neut % (Auto) 93.3 H Lymph % (Auto) 5.2 L Traverse % (Auto) 1.3 L Eos % (Auto) 0.1 L Baso % (Auto) 0.1 Neut # (Auto) 7000 Lymph # (Auto) 400 L Traverse # (Auto) 100 Eos # (Auto) 0 Baso # (Auto) 0 D-Dimer ABG pH ABG pCO2 ABG pO2 ABG HCO3 ABG Total CO2 ABG O2 Saturation ABG Base Excess FiO2 Sodium Potassium Chloride Carbon Dioxide BUN Creatinine Estimated GFR BUN/Creatinine Ratio Glucose Hemoglobin A1c Lactate Calcium Magnesium Ferritin Total Bilirubin AST ALT Alkaline Phosphatase Lactate Dehydrogenase Total Creatine Kinase CK-MB (CK-2) CK-MB (CK-2) Rel Index Troponin I C-Reactive Protein NT-Pro-B Natriuret Pep Total Protein Albumin Globulin Albumin/Globulin Ratio Procalcitonin Nasal Screen MRSA (PCR) Negative for mrsa Chlamy pneumoniae PCR Not detected Adenovirus (PCR) Not detected B.parapertussis DNA PCR Not detected Coronavirus OC43 (PCR) Not detected Coronavirus HKU1 (PCR) Not detected Coronavirus 229E (PCR) Not detected COVID-19 PCR Coronavirus NL63 (PCR) Not detected Human Metapneumovir PCR Not detected Influenza Type A (PCR) Not detected Influenza Type B (PCR) Not detected M. pneumoniae (PCR) Not detected Parainfluenza 1 (PCR) Not detected Parainfluenza 2 (PCR) Not detected Parainfluenza 3 (PCR) Not detected Parainfluenza 4 (PCR) Not detected RSV (PCR) Not detected Entero/Rhino (PCR) Not detected 05/12/20 05/12/20 05/12/20 04:44 04:44 04:44 WBC RBC Hgb Hct MCV MCH MCHC RDW Plt Count Neut % (Auto) Lymph % (Auto) Traverse % (Auto) Eos % (Auto) Baso % (Auto) Neut # (Auto) Lymph # (Auto) Traverse # (Auto) Eos # (Auto) Baso # (Auto) D-Dimer 678 H ABG pH ABG pCO2 ABG pO2 ABG HCO3 ABG Total CO2 ABG O2 Saturation ABG Base Excess FiO2 Sodium 139 Potassium 4.4 Chloride 108 H Carbon Dioxide 24 BUN 16 Creatinine 0.55 Estimated GFR > 60.0 BUN/Creatinine Ratio 29.1 H Glucose 221 H Hemoglobin A1c 11.0 H Lactate Calcium 8.6 Magnesium 2.2 Ferritin Total Bilirubin AST ALT Alkaline Phosphatase Lactate Dehydrogenase Total Creatine Kinase CK-MB (CK-2) CK-MB (CK-2) Rel Index Troponin I C-Reactive Protein NT-Pro-B Natriuret Pep Total Protein Albumin Globulin Albumin/Globulin Ratio Procalcitonin Nasal Screen MRSA (PCR) Chlamy pneumoniae PCR Adenovirus (PCR) B.parapertussis DNA PCR Coronavirus OC43 (PCR) Coronavirus HKU1 (PCR) Coronavirus 229E (PCR) COVID-19 PCR Coronavirus NL63 (PCR) Human Metapneumovir PCR Influenza Type A (PCR) Influenza Type B (PCR) M. pneumoniae (PCR) Parainfluenza 1 (PCR) Parainfluenza 2 (PCR) Parainfluenza 3 (PCR) Parainfluenza 4 (PCR) RSV (PCR) Entero/Rhino (PCR) Discharge Plan Discharge Plan Disposition: [facility] VTE Deep Vein Thrombosis/Pulmonary Embolism Present on Admission: No
[2020-05-12 13:53] LABS: HCO3 ABG 20 mmol/L (22-26); Oxygen Saturation ABG 91 % (95-100); PCO2 ABG 29.5 mmHg (35-45); PO2 ABG 57 mmHg (80-100); TCO2 ABG 21 mmol/L (21-31); pH ABG 7.44 (7.35-7.45)
[2020-05-12 13:54] LABS: Fractionated Inspired Oxygen 60
--- NOTE | 2020-05-12 14:38 | PC.NURSE ---
PT TRANSFERRED TO [facility] AT THIS TIME- UPDATE TO SISTER, RAISA AFTER GIVING REPORT TO PROV/TRANSPORT TEAM- SHE LEFT ON 12L NRB, ALERT/ORIENTED AND WITHOUT COMPLAINTS
== END 2020-05-12 14:20 | disposition short-term general hospital (02) | DRG 177 ==
LOC: ED 21:06 → AC 22:25 → ICU 05-12 09:12 → AC 05-13 09:27
PROVIDERS: Internal Medicine; Admitting Provider Nurse Practitioner Family; Emergency Provider Emergency Medicine; Referring Provider Emergency Medicine; Visit Provider Nurse Practitioner Family
DX: U07.1 COVID-19 (principal); J96.01 Acute respiratory failure with hypoxia; J12.89 Other viral pneumonia; E11.65 Type 2 diabetes mellitus with hyperglycemia; I10 Essential (primary) hypertension; E78.5 Hyperlipidemia, unspecified; Z87.891 Personal history of nicotine dependence; Z79.84 Long term (current) use of oral hypoglycemic drugs
CPT/HCPCS: 36415; 36600; 71045; 80048; 80053; 82550; 82728; 82805; 82962; 83036; 83605; 83615; 83735; 83880; 84145; 84484; 85025; 85379; 86140; 87040; 87633; 87635; 87797; 93005; 94640; 94760; 94762; 96374; 99285; J1100; J1650

== ENCOUNTER → 2021-10-23 09:25 | Outpatient (CLI) | payer OTHER, MEDICAID, SELFPAY ==
[2020-05-12 00:54] VITALS: BMI 30.9
--- NOTE | 2021-10-23 | DI.RAD.S_ITS ---
PROCEDURE: XR CHEST 2V INDICATIONS: POST COVID-19 CONDITION TECHNIQUE: 2 views of the chest were acquired. COMPARISON: [facility], , XR CHEST 1V, 05/11/2020, 20:29. FINDINGS: Surgical changes and devices: None. Lungs and pleura: Improved aeration of the lungs with persistent coarsened interstitial markings. No consolidation, pleural effusions or pneumothorax. Mediastinum: Mediastinal contours are normal. Heart size is normal. Bones and chest wall: No suspicious bony abnormalities. Soft tissues appear unremarkable. IMPRESSION: Improved aeration of the lungs as detailed above Dictated by: Micky Bauman M.D. on 10/23/2021 at 10:08 Approved by: Micky Bauman M.D. on 10/23/2021 at 10:09
== END ==
PROVIDERS: PCP Family Medicine; Referring Provider Registered Nurse; Visit Provider Registered Nurse
DX: U09.9 Post COVID-19 condition, unspecified (principal)
CPT/HCPCS: 71046

== ENCOUNTER 2022-01-11 09:54 | Emergency (ER) | payer OTHER, MEDICAID, SELFPAY ==
[2020-05-12 00:54] VITALS: BMI 30.9
[2022-01-11 09:50] VITALS: BP 163/77; PULSE 90; RESP 18; TEMP 36.2; O2SAT 96
[2022-01-11 09:56] VITALS: PULSE 89; O2SAT 97
[2022-01-11 10:00] VITALS: BP 162/84; PULSE 83; RESP 15; O2SAT 96
--- NOTE | 2022-01-11 10:00 | DI.RAD.S_ITS ---
PROCEDURE: XR CHEST 1V INDICATIONS: SOB, cough TECHNIQUE: One view of the chest was acquired. COMPARISON: [facility], CR, XR CHEST 1V, 05/11/2020, 20:29. [facility], CR, XR CHEST 2V, 10/23/2021, 9:22. FINDINGS: Surgical changes and devices: None. Lungs and pleura: Mild interstitial prominence. No pleural effusions or pneumothorax. Mediastinum: Mediastinal contours appear normal. Heart size is normal. Bones and chest wall: No suspicious bony lesions. Overlying soft tissues appear unremarkable. IMPRESSION: Mild interstitial prominence. Dictated by: Rg Augustin M.D. on 01/11/2022 at 10:24 Approved by: Rg Augustin M.D. on 01/11/2022 at 10:24
--- NOTE | 2022-01-11 10:07 | ED.SOB ---
HPI - SOB/Dyspnea General Chief Complaint: Shortness of Breath/Dyspnea Stated Complaint: Shortness of breath Time Seen by Provider: 01/11/22 09:59 History of Present Illness HPI Narrative: 71-year-old female former smoker with history of hypertension, hyperlipidemia and diabetes presents with ongoing symptoms for the past 3 months. She states that she had COVID for the 2nd time 3 months ago and has not felt normal since. She states that she has had shortness of breath with exertion and lying flat ever since. She states that she has had a cough which is often productive of yellowish sputum ever since. She denies fever or chills. She denies nausea or vomiting. She denies any chest pain, dizziness, weakness or lightheadedness. She denies any recent travel, history of blood clot, need for supplemental oxygen. She was seen and evaluated at the urgent care in [place] at some point relatively recently and was put on antibiotics and states that she thinks she got better but isn't quite sure. Related Data Home Medications Medication Instructions Recorded Confirmed aspirin 81 mg chewable tablet 81 mg PO DAILY 05/11/20 05/11/20 cholecalciferol (vitamin D3) 25 1,000 unit PO DAILY 05/11/20 05/11/20 mcg (1,000 unit) tablet hydrochlorothiazide 25 mg tablet 25 mg PO DAILY 05/11/20 05/11/20 lisinopril 40 mg tablet 40 mg PO DAILY 05/11/20 05/11/20 metformin 1,000 mg tablet 1,000 mg PO QAM 05/11/20 05/11/20 rosuvastatin 5 mg tablet 5 mg PO DAILY 05/11/20 05/11/20 insulin degludec 100 unit/mL (3 75 unit SUBCUT DAILY 05/12/20 05/12/20 mL) subcutaneous pen (Tresiba FlexTouch U-100 insulin) Previous Rx's Medication Instructions Recorded doxycycline hyclate 100 mg tablet 100 mg PO BID #20 tab 01/11/22 Allergies Allergy/AdvReac Type Severity Reaction Status Date / Time No Known Drug Allergies Allergy Verified 01/11/22 10:18 Review of Systems Review of Systems Narrative: GENERAL: Denies chills, fatigue, malaise, fever, sweats. HEENT: Denies sinus pain, ear pain, sore throat, difficulty swallowing, dizziness. RESPIRATORY: See HPI CARDIOVASCULAR: Denies chest pain, palpitations, orthopnea, edema, GASTROINTESTINAL: Denies nausea, vomiting, abdominal pain, diarrhea, constipation, melena. : Denies dysuria, frequency, incontinence, hematuria, urinary retention. MUSCULOSKELETAL: denies weakness, joint pain, or bony pain SKIN: Denies rash, skin lesions, or other NEUROLOGIC: Denies weakness, headache, numbness, change in speech, confusion, seizures, incoordination. PSYCHIATRIC: No concerning psychosocial issues. 12 point review of systems is negative except for those stated above Patient History Medical History (Updated 01/11/22 @ 11:23 by Sameer Goins DO) Diabetes type 2, controlled High cholesterol Hypertension Social History household members: family Smoking Status: Former smoker alcohol intake: never Smoking Status: Former smoker alcohol intake frequency: 0-2 drinks per day Substance Use Type: does not use Exam Narrative Exam Narrative: GENERAL: [71 year old patient appears stated age. Well-developed patient, in no obvious distress. No evidence of tachypnea, hypoxemia, conversational dyspnea. HEAD: Atraumatic. Normocephalic. EYES: Pupils equal round and reactive. Extraocular motions intact. No scleral icterus. No injection or drainage. ENT: Nose without bleeding, purulent drainage. Throat without erythema, tonsillar hypertrophy or exudate. Airway patent. NECK: Trachea midline. Non tender CARDIOVASCULAR: Regular rate and rhythm without murmurs, gallops, or rubs. RESPIRATORY: Clear to auscultation. Breath sounds equal bilaterally. No wheezes, rales, or rhonchi. GASTROINTESTINAL: Abdomen soft, non-tender, nondistended. EXTREMITIES: No edema or joint tenderness. BACK: Nontender without deformity or crepitance. No flank tenderness. NEURO: AOx3. SKIN: No rash or erythema of visible areas Initial Vital Signs Initial Vital Signs: Vital Signs Temperature 97.2 F L 01/11/22 09:50 Pulse Rate 90 01/11/22 09:50 Respiratory Rate 18 01/11/22 09:50 Blood Pressure 163/77 H 01/11/22 09:50 Pulse Oximetry 96 01/11/22 09:50 Course Orders Ordered: Discontinued Medications Aspirin (Aspirin 81 Mg Chew Tab) 324 mg PO NOW ONE Stop: 01/11/22 10:01 Last Admin: 01/11/22 10:40 Dose: 324 mg Documented by: SHARMILA Sodium Chloride (Normal Saline 0.9%) 1,000 mls @ 150 mls/hr IV CONT MARAH Last Infusion: 01/11/22 11:24 Dose: 0 mls/hr Documented by: Admin: 01/11/22 10:40 Dose: 150 mls/hr Documented by: SHARMILA Vital Signs Vital signs: Vital Signs - 8 hr 01/11/22 09:50 01/11/22 09:56 01/11/22 10:00 Temperature 97.2 F L Pulse Rate 90 89 83 Respiratory Rate 18 15 Blood Pressure 163/77 H 162/84 H Pulse Oximetry 96 97 96 01/11/22 10:30 01/11/22 11:00 Temperature Pulse Rate 89 83 Respiratory Rate 20 20 Blood Pressure 153/83 H 157/96 H Pulse Oximetry 94 96 MDM - SOB/Dyspnea Lab Data Result diagrams: 01/11/22 10:00 01/11/22 10:00 Labs: Lab Results 01/11/22 01/11/22 01/11/22 Range/Units 10:00 10:00 10:00 WBC 7.4 (4.5-11.0) X10^3/uL RBC 4.94 (4.0-5.2) X10^6/uL Hgb 13.9 (12.0-16.0) g/dL Hct 41.8 (36-46) % MCV 84.5 (80-100) fL MCH 28.1 (26-34) PG MCHC 33.2 (30-36) % RDW 14.4 (11.6-14.8) % Plt Count 297 (150-400) X10^3/uL Neut % (Auto) 56.2 (50-75) % Lymph % (Auto) 25.6 (25-40) % Sutter % (Auto) 5.5 (3-14) % Eos % (Auto) 11.4 H (2-4) % Baso % (Auto) 1.3 (0-2) % Neut # (Auto) 4200 (3976-5397) /uL Lymph # (Auto) 1900 (4988-1317) /uL Sutter # (Auto) 400 (0-900) /uL Eos # (Auto) 800 H (0-450) /uL Baso # (Auto) 100 (0-100) /uL PT 12.0 (10.1-12.7) SECONDS INR 1.1 (0.9-1.3) APTT 36 (26.4-36.2) SECONDS D-Dimer < 200 (<230) ng/mL Sodium 143 (137-145) mmol/L Potassium 3.8 (3.4-5.1) mmol/L Chloride 107 (98-107) mmol/L Carbon Dioxide 30 (22-32) mmol/L BUN 16 (7-17) mg/dL Creatinine 0.78 (0.52-1.04) mg/dL Estimated GFR > 60.0 (>60) mL/min BUN/Creatinine Ratio 20.5 (6-22) Glucose 145 H (80-110) mg/dL Calcium 8.9 (8.4-10.2) mg/dL Total Bilirubin 0.4 (0.2-1.3) mg/dL AST 30 (14-36) IU/L ALT 18 (<35) IU/L Alkaline Phosphatase 171 H (38-126) U/L Total Creatine Kinase 47 (30-135) U/L CK-MB (CK-2) TNP CK-MB (CK-2) Rel Index TNP Troponin I < 0.012 (0.01-0.034) ng/mL C-Reactive Protein 1.4 H (<1.0) mg/dL NT-Pro-B Natriuret Pep 71 (<125) pg/mL Total Protein 8.0 (6.3-8.2) g/dL Albumin 4.0 (3.5-5.0) g/dL Globulin 4.0 (1.7-4.1) g/dL Albumin/Globulin Ratio 1.0 (1.0-2.8) Lipase 144 (23-300) U/L Procalcitonin 0.05 (<0.5) ng/mL Chlamy pneumoniae PCR (Not Detect) Adenovirus (PCR) (Not Detect) B. pertussis DNA (PCR) (Not Detecte) B.parapertussis DNA PCR (Not Detecte) Coronavirus OC43 (PCR) (Not Detect) Coronavirus HKU1 (PCR) (Not Detect) Coronavirus 229E (PCR) (Not Detect) SARS-CoV-2 (PCR) (Not Detecte) Coronavirus NL63 (PCR) (Not Detect) Human Metapneumovir PCR (Not Detect) Influenza Type A (PCR) (Not Detect) Influenza Type B (PCR) (Not Detect) M. pneumoniae (PCR) (Not Detect) Parainfluenza 1 (PCR) (Not Detect) Parainfluenza 2 (PCR) (Not Detect) Parainfluenza 3 (PCR) (Not Detect) Parainfluenza 4 (PCR) (Not Detect) RSV (PCR) (Not Detect) Entero/Rhino (PCR) (Not Detect) 01/11/22 Range/Units 10:00 WBC (4.5-11.0) X10^3/uL RBC (4.0-5.2) X10^6/uL Hgb (12.0-16.0) g/dL Hct (36-46) % MCV (80-100) fL MCH (26-34) PG MCHC (30-36) % RDW (11.6-14.8) % Plt Count (150-400) X10^3/uL Neut % (Auto) (50-75) % Lymph % (Auto) (25-40) % Sutter % (Auto) (3-14) % Eos % (Auto) (2-4) % Baso % (Auto) (0-2) % Neut # (Auto) (4251-1984) /uL Lymph # (Auto) (3498-9683) /uL Sutter # (Auto) (0-900) /uL Eos # (Auto) (0-450) /uL Baso # (Auto) (0-100) /uL PT (10.1-12.7) SECONDS INR (0.9-1.3) APTT (26.4-36.2) SECONDS D-Dimer (<230) ng/mL Sodium (137-145) mmol/L Potassium (3.4-5.1) mmol/L Chloride (98-107) mmol/L Carbon Dioxide (22-32) mmol/L BUN (7-17) mg/dL Creatinine (0.52-1.04) mg/dL Estimated GFR (>60) mL/min BUN/Creatinine Ratio (6-22) Glucose (80-110) mg/dL Calcium (8.4-10.2) mg/dL Total Bilirubin (0.2-1.3) mg/dL AST (14-36) IU/L ALT (<35) IU/L Alkaline Phosphatase (38-126) U/L Total Creatine Kinase (30-135) U/L CK-MB (CK-2) CK-MB (CK-2) Rel Index Troponin I (0.01-0.034) ng/mL C-Reactive Protein (<1.0) mg/dL NT-Pro-B Natriuret Pep (<125) pg/mL Total Protein (6.3-8.2) g/dL Albumin (3.5-5.0) g/dL Globulin (1.7-4.1) g/dL Albumin/Globulin Ratio (1.0-2.8) Lipase (23-300) U/L Procalcitonin (<0.5) ng/mL Chlamy pneumoniae PCR Not detected (Not Detect) Adenovirus (PCR) Not detected (Not Detect) B. pertussis DNA (PCR) Not detected (Not Detecte) B.parapertussis DNA PCR Not detected (Not Detecte) Coronavirus OC43 (PCR) Not detected (Not Detect) Coronavirus HKU1 (PCR) Not detected (Not Detect) Coronavirus 229E (PCR) Not detected (Not Detect) SARS-CoV-2 (PCR) Not detected (Not Detecte) Coronavirus NL63 (PCR) Not detected (Not Detect) Human Metapneumovir PCR Not detected (Not Detect) Influenza Type A (PCR) Not detected (Not Detect) Influenza Type B (PCR) Not detected (Not Detect) M. pneumoniae (PCR) Not detected (Not Detect) Parainfluenza 1 (PCR) Not detected (Not Detect) Parainfluenza 2 (PCR) Not detected (Not Detect) Parainfluenza 3 (PCR) Not detected (Not Detect) Parainfluenza 4 (PCR) Not detected (Not Detect) RSV (PCR) Not detected (Not Detect) Entero/Rhino (PCR) Not detected (Not Detect) Imaging Data Chest x-ray: Radiologist's Impression: Launch?[address] [address] XRay Report Signed Patient: Carmina Ewing MR#: [id number] : 1950 Acct:[id number] Age/Sex: 71 / F Date of Service: 01/11/22 Loc: ED Accession Number: [id number] ?? Procedure: XR chest 1V Ordering Provider: Sameer Goins D.O. PROCEDURE:? XR CHEST 1V ? INDICATIONS:? SOB, cough ? TECHNIQUE:? One view of the chest was acquired.? ? COMPARISON:? [facility], CR, XR CHEST 1V, 05/11/2020, 20:29.? [facility], CR, XR CHEST 2V, 10/23/2021, 9:22. ? FINDINGS:? ? Surgical changes and devices:? None.? ? Lungs and pleura:? Mild interstitial prominence.? No pleural effusions or pneumothorax.? ? Mediastinum:? Mediastinal contours appear normal.? Heart size is normal.? ? Bones and chest wall:? No suspicious bony lesions.? Overlying soft tissues appear unremarkable.? ? IMPRESSION:? Mild interstitial prominence. ? ? Dictated by: Rg Augustin M.D. on 01/11/2022 at 10:24 ? ? Approved by: Rg Augustin M.D. on 01/11/2022 at 10:24? MDM Narrative Medical decision making narrative: Patient here for evaluation of acute on chronic shortness of breath with occasionally productive cough. She has a very reassuring history and physical exam and demonstrates no sign of significant work of breathing. She has no tachypnea, hypoxemia, need for supplemental oxygen. Labs and imaging are reassuring. She had recently been on a course of antibiotics and states she felt better for a period of time and then got worse once they ran out. This along with her report of productive sputum would suggest she will benefit from a course of antibiotics for the coverage of atypical pneumonia. Return precautions given and questions have been answered to her apparent satisfaction Discharge Plan Departure Patient Disposition: Home Clinical Impression: Atypical pneumonia Instructions: DI for Atypical Pneumonia Activity Restrictions/Additional Instructions: *You have been diagnosed with [atypical pneumonia. Your history and physical exam as well as labs and imaging are very reassuring. There is no evidence of heart failure, COVID, influenza, heart attack or blood clot. *What to do: *Please continue to take your regular medications as directed. [x ] New medication prescriptions sent to your pharmacy: [[facility] ] [ ] New medication written as a paper prescription [ ] No new medications given *Please follow up with your primary care provider in 2-3 days, call for an appointment. Let them know you were seen in the Emergency Department and that we ask that you be seen in follow up. We will electronically transmit a record of today's note if your PCP is in our system *If you do not have a primary care provider please contact the [facility] Resource line at [phone]. They will ask some questions about your medical history and help get you set up with a doctor in the community. *Return to Emergency Department if you should have any new, worsening or concerning symptoms, such as [fever greater than 101 F, shaking chills, worsening pain, persistent vomiting or other bothersome symptoms] Prescriptions: New doxycycline hyclate 100 mg tablet 100 mg PO BID Qty: 20 0RF No Action metformin 1,000 mg tablet 1,000 mg PO QAM 0RF Label Comments: TAKE 1 TABLET BY MOUTH WITH A MEAL ONCE A DAY aspirin 81 mg tablet,chewable 81 mg PO DAILY 0RF Label Comments: TAKE 1 TABLET BY MOUTH ONCE A DAY hydrochlorothiazide 25 mg tablet 25 mg PO DAILY 0RF Label Comments: TAKE 1 TABLET BY MOUTH EVERY DAY FOR HIGH BLOOD PRESSURE lisinopril 40 mg tablet 40 mg PO DAILY 0RF Label Comments: TAKE 1 TABLET BY MOUTH EVERY DAY FOR HIGH BLOOD PRESSURE rosuvastatin 5 mg tablet 5 mg PO DAILY 0RF Label Comments: TAKE 1 TABLET BY MOUTH ONCE A DAY cholecalciferol (vitamin D3) 25 mcg (1,000 unit) tablet 1,000 unit PO DAILY 0RF Label Comments: TAKE 1 TABLET BY MOUTH EVERY DAY Tresiba FlexTouch U-100 100 unit/mL (3 mL) Insulin Pen 75 unit SUBCUT DAILY 0RF Referrals: Cheli Mcdonald MD [Primary Care Provider] -
[2022-01-11 10:14] LABS: Add Manual Diff / Slide Review NO; Basophils Absolute Auto 100 /uL (0-100); Basophils Percent Auto 1.3 % (0-2); Eosinophils Absolute Auto 800 /uL (0-450); Eosinophils Percent Auto 11.4 % (2-4); Hematocrit 41.8 % (36-46); Hemoglobin 13.9 g/dL (12.0-16.0); Lymphocytes Absolute Auto 1900 /uL (1100-4500); Lymphocytes Percent Auto 25.6 % (25-40); Mean Corpuscular HGB Conc 33.2 % (30-36); Mean Corpuscular Hemoglobin 28.1 PG (26-34); Mean Corpuscular Volume 84.5 fL (80-100); Monocytes Absolute Auto 400 /uL (0-900); Monocytes Percent Auto 5.5 % (3-14); Neutrophils Absolute Auto 4200 /uL (1500-7000); Neutrophils Percent Auto 56.2 % (50-75); Platelet Count 297 X10^3/uL (150-400); Red Blood Cell Count 4.94 X10^6/uL (4.0-5.2); Red Cell Distribution Width 14.4 % (11.6-14.8); White Blood Cell Count 7.4 X10^3/uL (4.5-11.0)
[2022-01-11 10:22] LABS: INR 1.1 (0.9-1.3)
[2022-01-11 10:25] LABS: PTT Partial Thromboplastin Tim 36 SECONDS (26.4-36.2)
[2022-01-11 10:26] LABS: D Dimer < 200 ng/mL (<230)
[2022-01-11 10:30] VITALS: BP 153/83; PULSE 89; RESP 20; O2SAT 94
[2022-01-11 10:30] LABS: Alanine Aminotransferase 18 IU/L (<35); Alkaline Phosphatase 171 U/L (38-126); Aspartate Aminotransferase 30 IU/L (14-36); BUN Creatinine Ratio 20.5 (6-22); Bilirubin Total 0.4 mg/dL (0.2-1.3); Blood Urea Nitrogen 16 mg/dL (7-17); C-Reactive Protein Quant 1.4 mg/dL (<1.0); Calcium 8.9 mg/dL (8.4-10.2); Carbon Dioxide 30 mmol/L (22-32); Chloride 107 mmol/L (98-107); Creatine Kinase 47 U/L (30-135); Estimated Glomerular Filt Rate > 60.0 mL/min (>60); Glucose 145 mg/dL (80-110); HEMOLYSIS < 15 (0-50); Lipase 144 U/L (23-300); Potassium 3.8 mmol/L (3.4-5.1); Sodium 143 mmol/L (137-145)
[2022-01-11 10:39] LABS: NT-proBNP (BNP-Adult 18+) 71 pg/mL (<125); Troponin I < 0.012 ng/mL (0.01-0.034)
[2022-01-11] MEDS: ASPIRIN 81 MG CHEW TAB 324 MG PO (10:40)
[2022-01-11] MEDS: SODIUM CHLORIDE 0.9% 1,000 ML 150 ML IV (10:40)
[2022-01-11 10:44] LABS: Procalcitonin 0.05 ng/mL (<0.5)
[2022-01-11 11:00] VITALS: BP 157/96; PULSE 83; RESP 20; O2SAT 96
[2022-01-11 11:07] LABS: Adenovirus Not Detected (Not Detect); B. parapertussis Not Detected (Not Detecte); Bordetella pertussis Not Detected (Not Detecte); Chlamydophila pneumoniae Not Detected (Not Detect); Coronavirus 229E Not Detected (Not Detect); Coronavirus HKU1 Not Detected (Not Detect); Coronavirus NL 63 Not Detected (Not Detect); Coronavirus OC43 Not Detected (Not Detect); Human Metapneumovirus Not Detected (Not Detect); Human Rhinovirus/Enterovirus Not Detected (Not Detect); Influenza A Not Detected (Not Detect); Influenza B Not Detected (Not Detect); Mycoplasma pneumoniae Not Detected (Not Detect); Parainfluenza Virus 1 Not Detected (Not Detect); Parainfluenza Virus 2 Not Detected (Not Detect); Parainfluenza Virus 3 Not Detected (Not Detect); Parainfluenza Virus 4 Not Detected (Not Detect); Respiratory Syncytial Virus Not Detected (Not Detect); SARS- CoV-2 Not Detected (Not Detecte)
== END 2022-01-11 11:33 | disposition home or self-care (01) ==
PROVIDERS: Emergency Provider Emergency Medicine; PCP Family Medicine
DX: J18.9 Pneumonia, unspecified organism (principal); Z87.891 Personal history of nicotine dependence
CPT/HCPCS: 36415; 71045; 80053; 82550; 83690; 83880; 84145; 84484; 85025; 85379; 85610; 85730; 86140; 87633; 96360; 99284

== ENCOUNTER → 2024-11-19 16:08 | Outpatient (CLI) | payer MEDICARE, MEDICAID, SELFPAY ==
[2020-05-12 00:54] VITALS: BMI 30.9
== END ==
PROVIDERS: PCP Family Medicine; Referring Provider Physician Assistant; Visit Provider Physician Assistant
DX: J45.909 Unspecified asthma, uncomplicated (principal); Z87.891 Personal history of nicotine dependence; R94.2 Abnormal results of pulmonary function studies; U09.9 Post COVID-19 condition, unspecified
CPT/HCPCS: 94060; 94726; 94729